=== PATIENT | male | born 2000 | race Two or more races ===

== ENCOUNTER 2021-04-14 08:33 | Emergency (ER) | payer SELFPAY ==
[2021-04-14 08:41] VITALS: BP 122/71; PULSE 74; TEMP 97.6; BMI 32.3
== END 2021-04-14 09:25 | disposition home or self-care (01) ==
LOC: JER 08:33 → JERFT 08:33
DX: L03.213 Periorbital cellulitis (principal)
CPT/HCPCS: 99283-25